=== PATIENT | female | born 1965 | race Caucasian/White ===

== ENCOUNTER 2016-12-27 22:41 | Observation (INO) | payer MEDICAID ==
--- NOTE | 2016-12-27 22:57 | ED Physician Documentation ---
PD HPI DYSPNEA - Stated complaint Stated Complaint: BACK PX - Chief complaint Chief Complaint: General - History obtained from History obtained from: Patient - History of Present Illness Timing - onset: Today Timing - details: Gradual onset, Still present Improved by: O2 Worsened by: Exertion Associated symptoms: No: Fever, Cough Similar symptoms before: Has not had sx before Recently seen: Not recently seen - Additional information Additional information: Patient is a 51 year old female who is presenting to the emergency department for back pain and swelling. patient states that she was at work today and was having trouble breathing due to a pain whenever she took a breath. Patient's co -worker stated that her back was swollen and had a large lump. Patient states that it came out of nowhere. Patient denies any trauma, of any sort, any falls or any muscle strains. Patient reports that she has had nothing like this in the past before. Review of Systems Constitutional: reports: Myalgias. denies: Fever, Chills Eyes: denies: Loss of vision Ears: denies: Ear pain, Drainage/discharge Nose: denies: Congestion, Epistaxis Throat: denies: Oral lesions / sores, Sore throat Cardiac: reports: Chest pain / pressure. denies: Palpitations Respiratory: reports: Dyspnea, Cough. denies: Wheezing GI: denies: Abdominal Pain, Nausea, Vomiting : denies: Dysuria, Frequency, Hesitancy Skin: reports: Lesions Musculoskeletal: reports: Back pain Neurologic: reports: Numbness. denies: Generalized weakness, Focal weakness Immunocompromised: denies: Immunocompromised PD PAST MEDICAL HISTORY - Past Medical History Past Medical History: Yes Cardiovascular: Hypertension Other Past Medical History: Blood clots in brain. - Past Surgical History Past Surgical History: Yes - Present Medications Home Medications: Ambulatory Orders Medication Instructions Recorded Confirmed Aspirin 81 mg PO DAILY 12/27/16 12/27/16 Ibuprofen 200 mg PO Q8HR PRN 12/27/16 12/27/16 - Allergies Allergies/Adverse Reactions: Allergies Allergy/AdvReac Type Severity Reaction Status Date / Time No Known Drug Allergies Allergy Verified 12/27/16 22:55 - Social History Does the pt smoke?: Yes Smoking Status: Current every day smoker Does the pt drink ETOH?: No Does the pt have substance abuse?: No - Immunizations Immunizations are current?: Yes - POLST Patient has POLST: No PD ED PE NORMAL - Vitals Vital signs reviewed: Yes - General General: Alert and oriented X 3 - HEENT HEENT: Atraumatic, PERRL - Cardiac Cardiac: RRR, No murmur - Respiratory Respiratory: No respiratory distress - Abdomen Abdomen: Soft, Non tender, Non distended - Derm Derm: Normal color, No rash - Neuro Neuro: Alert and oriented X 3, No motor deficit, No sensory deficit - Psych Psych: Normal mood, Normal affect PD ED PE EXPANDED - General General: Alert, In Pain - Back Back: Soft tissue tenderness (large mass approximately 12 inches by 5 inches. tender to touch, no erythema, no warmth) Results - Vitals Vitals: Vital Signs - 24 hr 12/27/16 12/27/16 22:45 23:45 Temperature 36.9 C Heart Rate 94 67 Respiratory 20 19 Rate Blood Pressure 180/104 H 149/83 H O2 Saturation 99 100 Oxygen O2 Source Room air - EKG (time done) 2306 Rate: Rate (enter#) (81) Rhythm: NSR Intervals: Prolonged QT QRS: Normal Ischemia: Normal ST segments Compare to prior EKG: Old EKG unavailable - Labs Labs: Laboratory Tests 12/27/16 12/27/16 12/27/16 22:55 22:55 22:55 WBC 15.3 H RBC 3.58 L Hgb 10.8 L Hct 31.9 L MCV 89.3 MCH 30.2 MCHC 33.9 RDW 14.3 Plt Count 162 MPV 9.5 Neut # 12.3 H Lymph # 2.0 Brule # 0.8 Eos # 0.1 Baso # 0.1 Absolute Nucleated RBC 0.00 Nucleated RBC % 0.0 PT INR APTT Sodium 135 Potassium 3.6 Chloride 102 Carbon Dioxide 24 Anion Gap 9.0 BUN 11 Creatinine 0.9 Estimated GFR (MDRD) 66 L Glucose 119 H Calcium 8.0 L Total Bilirubin 0.7 AST 17 ALT 11 Alkaline Phosphatase 49 Troponin I < 0.04 B-Natriuretic Peptide Total Protein 6.2 L Albumin 3.8 Globulin 2.4 Albumin/Globulin Ratio 1.6 Lipase 31 12/27/16 12/27/16 22:55 22:55 WBC RBC Hgb Hct MCV MCH MCHC RDW Plt Count MPV Neut # Lymph # Brule # Eos # Baso # Absolute Nucleated RBC Nucleated RBC % PT 12.1 INR 1.1 APTT 24.8 L Sodium Potassium Chloride Carbon Dioxide Anion Gap BUN Creatinine Estimated GFR (MDRD) Glucose Calcium Total Bilirubin AST ALT Alkaline Phosphatase Troponin I B-Natriuretic Peptide 88 Total Protein Albumin Globulin Albumin/Globulin Ratio Lipase - Rads (name of study) ct chest Radiology: Final report received (No Pe, large posterior hematoma) PD MEDICAL DECISION MAKING - ED course Complexity details: reviewed old records, reviewed results, re-evaluated patient , considered differential, d/w patient ED course: Patient was seen and examined at bedside. iv access was gained. ekg was performed and within normal limits. Patient was treated with iv fluids and morphine 4mg. Patient was sent for imaging. when patient returned the results were reviewed. there was no PE but there was a large hematoma. Surgery strategy planning consultant , dr. menjivar was contacted. she stated the patient should be placed in observation under the medical service, pain control and monitor the size and Hemoglobin levels. Dr. Anders was contacted and the case was discussed with him. Patient was placed in observation for further evaluation and care. Departure - Departure Disposition: ED Place in Observation Clinical Impression: Hematoma Condition: Stable
[2016-12-27 23:04] LABS: BASOPHILS # (AUTO) 0.1 10^3/uL (0.0-0.1); BASOPHILS % (AUTO) 0.8 %; EOSINOPHILS # (AUTO) 0.1 10^3/uL (0.0-0.7); EOSINOPHILS % (AUTO) 0.5 %; HCT - HEMATOCRIT 31.9 % (37.0-47.0); HGB - HEMOGLOBIN 10.8 g/dL (12.0-16.0); LYMPHOCYTES % (AUTO) 13.1 %; MEAN CORPUSCULAR HEMOGLOBIN 30.2 pg (27.0-31.0); MEAN CORPUSCULAR HGB CONC 33.9 g/dL (32.0-36.0); MEAN CORPUSCULAR VOLUME 89.3 fL (81.0-99.0); MEAN PLATELET VOLUME 9.5 fL (7.9-10.8); MONOCYTES # (AUTO) 0.8 10^3/uL (0.0-1.0); NEUTROPHILS # (AUTO) 12.3 10^3/uL (1.5-6.6); NEUTROPHILS % (AUTO) 80.6 %; RED BLOOD COUNT 3.58 10^6/uL (4.20-5.40); RED CELL DISTRIBUTION WIDTH 14.3 % (12.0-15.0); UNCORRECTED WHITE BLOOD COUNT 15.3 x10^3/uL; WHITE BLOOD COUNT 15.3 x10^3/uL (4.8-10.8)
[2016-12-27] MEDS ORDERED: MORPHINE 10 MG/ML VIAL IVP STA (23:05)
[2016-12-27] MEDS ORDERED: SODIUM CHLORIDE 0.9% 1,000 ML IV ONE (23:10)
[2016-12-27] MEDS ORDERED: ONDANSETRON 4 MG/2 ML VIAL IVP STA (23:11)
[2016-12-27] MEDS ORDERED: MORPHINE 2 MG/ML SYRINGE ONE (23:12)
[2016-12-27] MEDS ORDERED: SODIUM CHLORIDE FLUSH 0.9% 10 ML SYRINGE IVP ONE (23:12)
[2016-12-27] MEDS ORDERED: ONDANSETRON 4 MG/2 ML VIAL ONE (23:17)
[2016-12-27 23:18] LABS: ALBUMIN/GLOBULIN RATIO 1.6 (1.0-2.2); BILIRUBIN,TOTAL 0.7 mg/dL (0.2-1.0); CREATININE 0.9 mg/dL (0.4-1.0); POTASSIUM 3.6 mmol/L (3.5-5.0); TOTAL PROTEIN 6.2 g/dL (6.7-8.2)
[2016-12-27] MEDS ORDERED: IOPAMIDOL-300 100 ML VIAL ONE (23:25)
[2016-12-27 23:33] LABS: INR 1.1 (0.8-1.2); PT - PROTHROMBIN TIME 12.1 secs (9.9-12.6)
[2016-12-27] MEDS ORDERED: IOPAMIDOL-300 100 ML VIAL IVP ONE (23:39)
[2016-12-27 23:40] LABS: PARTIAL THROMBOPLASTIN TIME 24.8 secs (24.9-33.3)
--- NOTE | 2016-12-27 23:54 | CT Preliminary Report ---
Exam: CT CHEST ANGIO (PE) IMPRESSION: 1. No pulmonary emboli seen. 2. Very large left-sided body wall hematoma. 3. Flattening of the IVC which could represent hypovolemia. 4. Borderline heart size. [facility] SITE ID: [id number]
--- NOTE | 2016-12-27 23:57 | CT Report ---
EXAM: CT ANGIOGRAM CHEST EXAM DATE: 12/27/2016 11:47 PM. CLINICAL HISTORY: Chest pain, shortness of breath, hx of clots, large back mass. COMPARISON: None. TECHNIQUE: Routine helical imaging was performed through the chest in the pulmonary arterial phase. I V Contrast: Nonionic. Reconstructions: Coronal 3-D MIP reconstructions.Sagittal and coronal. In accordance with CT protocol optimization, one or more of the following dose reduction techniques w ere utilized for this exam: automated exposure control, adjustment of mA and/or KV based on patient s ize, or use of iterative reconstructive technique. FINDINGS: Pulmonary Arteries: Diagnostic quality: Adequate through the segmental arteries. No evidence for acute or chronic pulmona ry emboli. No evidence of right heart strain. Lungs/Pleura: No alveolar consolidation or pleural effusion. No pneumothorax. Mediastinum: Heart size upper normal. No lymphadenopathy seen. Thoracic Aorta: Ascending aorta measures 3.4 cm. No aortic dissection. Upper Abdomen: Possible fatty liver. Other: Very large left-sided body wall hematoma. Flattening of the inferior vena cava which could rep resent hypovolemia. IMPRESSION: 1. No pulmonary emboli seen. 2. Very large left-sided body wall hematoma. 3. Flattening of the IVC which could represent hypovolemia. 4. Borderline heart size. [facility] Referring Provider Line: [phone] SITE ID: [id number]
[2016-12-28] MEDS ORDERED: MORPHINE 10 MG/ML VIAL IVP STA (00:14)
[2016-12-28] MEDS ORDERED: ONDANSETRON 4 MG/2 ML VIAL IVP PRN (00:20)
[2016-12-28] MEDS ORDERED: oxyCODONE 5 MG TABLET PO PRN (00:20)
[2016-12-28] MEDS ORDERED: PROMETHAZINE 25 MG/1 ML VIAL IM PRN (00:20)
[2016-12-28] MEDS ORDERED: ZOLPIDEM 5 MG TABLET PO PRN (00:20)
[2016-12-28] MEDS ORDERED: PROCHLORPERAZINE 10 MG/2 ML VIAL IVP PRN (00:20)
--- NOTE | 2016-12-28 00:56 | HISTORY & PHYSICAL EXAMINATION ---
Chief Complaint - Chief Complaint Chief Complaint: Lump and swelling of the back History of Present Illness - Admitted From Admitted From:: Emergency Department - History Obtained From Records Reviewed: Yes History obtained from: Patient Exam Limitations: None - History of Present Illness HPI Comment/Other: Patient is a 51 year old female with past medical history of hypertension not currently on medications, Chronic anemia secondary to menorrhagia, fibroids status post hysterectomy and history of a neurological procedure in for likely aneurysm or cerebral hemorrhage who presents to the emergency department with a chief complaint of a lump and swelling of her back. The patient states that she moved here 3 months ago and does not have a primary care physician or health insurance and therefore was hesitant about coming to the ER today. She states she was in her normal state of health when she woke up this morning but she states at around 9am she felt a strange irritation in her back. She states the feeling with in her upper back on the left side behind her shoulder blade. She states that she felt the feeling go down in back to her lower back. She states that she then began having a feeling of pressure in her upper and mid back area. She states she went to work and while there she began experiencing worsening pain in her back. She states that a co-worker noticed that she had a large lump in her back and when she looked she noticed her upper back was swollen on the left side behind her shoulder blade. She states she went home and while at home she became nauseated and felt weak as though her legs were going to give out. She states she also felt dizzy. She then began having trouble taking a deep breath and felt as if the pain was now in her left chest wall. She also noticed that the pressure in her back was getting up into the left side of her neck. She finally decided to come to the emergency department. The patient is on an aspirin but no other blood thinners. She did take some ibuprofen prior to coming to the ER. The patient denies any recent trauma, headaches, blurred, vision, runny nose, sore throat, nasal congestion, difficulty swallowing, fevers, chills, palpitations, heart burn, orthopnea, PND, lower extremity swelling, diarrhea, urinary urgency, urinary frequency, dysuria, joint swelling, joint pain, muscle aches, changes in appetite, unintentional weight loss, night sweats or focal neurological deficits. On presentation to the emergency department the patient was afebrile, mildly tachycardic, hypertensive and tachypneic. She appeared to be in distress secondary to pain in her back and chest area as well as due to difficulty breathing. The patient underwent a cardiac work up with EKG and troponin. The patients EKG showed non specific changes but no evidence of ST elevations. The patients troponin was negative. On initial inspection by the ER physician the patient was noted to have a large area of swelling and induration over her left scapular region but into the neck and down to the mid back area. The patients lab work revealed a hemoglobin of 10.8 and a white blood cell count of 15.1. The patients platelet count was also borderline low at 162. The patients INR and PT were normal. The patients electrolytes were also normal. The patient underwent a CT angiogram of her chest which revealed a very large left sided body wall hematoma but no evidence of a PE. The Emergency room physician spoke with the Surgeon special education coordinator Dr Hair who advised the patient be placed in observation by the Hospitalist Physician and have serial hemoglobin monitoring. The surgeon said the patient would be seen in the morning to see if she needed any intervention. History - Past Medical History Cardiovascular: reports: Hypertension Neuro: reports: Other (Aneurysm or hematoma ) DATA CONTROL CLERK: reports: Fibroids, Other (Menorrhagia, uterine prolapse) MRSA Hx?: No - Past Surgical History /DATA CONTROL CLERK: reports: Hysterectomy - Family & Social History Family History: Mother: Diabetes, Type 2, Father: Diabetes, Type 2, [place], Sister: Cancer (Sister had leukemia ) Living arrangement: At home Living Situation: With family Social History Notes: The patient moved would [facility] 3 months ago to be closer to her son. The patient's son works in [place] he is in the [employer]. The patient is originally from [facility]. The patient has 4 children and is single. She smokes 3 cigarettes a day, she denies any alcohol or drug use. - Substance History Use: Uses substance without health or social issues: Tobacco Abuse: Recurrent use of substance despite neg consequences: NONE Dependence: Experiences withdrawal or developed tolerances: NONE - POLST Patient has POLST: No POLST Status: Full Code Meds/Allgy - Home Medications Home Medications: Ambulatory Orders Medication Instructions Recorded Confirmed Aspirin 81 mg PO DAILY 12/27/16 12/27/16 Ibuprofen 200 mg PO Q8HR PRN 12/27/16 12/27/16 - Allergies Allergies/Adverse Reactions: Allergies Allergy/AdvReac Type Severity Reaction Status Date / Time No Known Drug Allergies Allergy Verified 12/27/16 22:55 Review of Systems - Other Findings Other Findings: A comprehensive review of systems was performed the pertinent positives and negatives are stated above in the HPI and the remainder of the review of systems is negative. Exam - Vital Signs Reviewed Vital Signs: Yes Vital Signs: Vital Signs x48h Pulse Resp BP Pulse Ox 12/28/16 00:30 73 17 133/82 H 100 - Physical Exam General Appearance: positive: Alert, Mild distress (Unable to take deep breaths secondary to pain, patient is in a significant amount of pain.), Anxious Eyes Bilateral: positive: Normal inspection, PERRL, EOMI, No lid inflammation, Conjunctivae nml, No scleral icterus ENT: positive: ENT inspection nml, Pharynx nml, Dry mucous membranes. negative : Purulent nasal drainage, Pharyngeal erythema, Oral lesions Neck: positive: Nml inspection, Thyroid nml, No JVD, Trachea midline, Swelling/ bruising (Swelling of the left side of the neck.). negative: Thyromegaly, Lymphadenopathy (R), Lymphadenopathy (L), Stiff neck, Carotid bruit, Tracheal deviation Respiratory: positive: Breath sounds nml, Other (Patient unable to take deep breaths secondary to pain.). negative: Wheezes, Rales, Rhonchi Cardiovascular: positive: Regular rate & rhythm, No murmur, No gallop Peripheral Pulses: positive: 2+ Abdomen: positive: Non-tender, No organomegaly, Nml bowel sounds, No distention. negative: Guarding, Rebound, Hepatomegaly, Bruit Back: positive: Other (Patient has a large area of swelling and induration over the scapular area on the left up into the left side of her neck and to the mid back area. This area is tender, without erythema or warmth.). negative: CVA tenderness (R), CVA tenderness (L) Skin: positive: Color nml, No rash, Other (Swelling in the upper left side of the back and neck area as described above.). negative: Cyanosis, Diaphoresis, Pallor, Skin rash Extremities: positive: Non-tender, Full ROM, Nml appearance, No pedal edema. negative: Joint swelling Neurologic/Psychiatric: positive: Oriented x3, CN's nml (2-12), Motor nml, Sensation nml, Mood/affect nml Conclusion/Plan - Problem List (1) Hematoma Conclusion/Plan: The patient presented with what appears to be a spontaneous hematoma over the left scapular area on her back extending all the way down to the mid back and up into the left side of her neck. The area is indurated and quite tender but without erythema or signs of infection. CT of the patient's chest revealed a very large left-sided body wall hematoma. The patient does have a history of a possible cerebral hemorrhage although patient is a poor historian and we are currently trying to get records from her hospitalization in [place]. It is possible that the patient may have some sort of bleeding disorder as she did not have any kind of trauma to cause this hematoma. The patient likely has a bleeding vessel which is causing this accumulation of blood in her back. The patient is hemodynamically stable at this time. She does not appear to have any kind of compartment syndrome, respiratory compromise, airway compromise or focal neurologic deficits to warrant an emergent evacuation of the hematoma or embolization of blood vessel. Emergency room physician did talk with the surgeon special education coordinator who asked that we place the patient in observation for serial hemoglobins and that the patient would be seen in the morning. Plan: We will monitor closely for any progression of the hematoma, compartment syndrome, focal neurologic deficits or airway compromise. H&H every 6 hours Type and cross RBCs and transfuse if hemoglobin less than 7, hemodynamic compromise or rapid blood loss. Surgery consultation Hold aspirin and any other blood thinners. Pain control with Tylenol, oxycodone, morphine Warm heating pad to the area of hematoma (2) Anemia Conclusion/Plan: Patient appears to have acute blood loss anemia secondary to large hematoma in her left body wall posteriorly. The bleeding appears to be non-traumatic and is likely secondary to a bleeding vessel. The patient is not hypotensive, tachycardic or hemodynamically unstable. Patient does have a history of chronic anemia secondary to menorrhagia but is status post hysterectomy in 2014. Plan: We will monitor the patient's H&H every 6 hours Patient will be transfused if hemoglobin drops below 7 or if she has any hemodynamic compromise with continued bleeding Avoid any blood thinners Qualifiers: Other causes of anemia: acute posthemorrhagic (3) Leukocytosis Conclusion/Plan: Patient appears likely to have a reactive leukocytosis likely secondary to her hematoma. The patient does not appear to be infected as she is not having any fever or hypotension and the hematoma is not warm nor does it have surrounding erythema to suggest infection. We will continue to monitor the patient's CBC. Qualifiers: Leukocytosis type: leukemoid reaction Qualified Code(s): D72.823 - Leukemoid reaction (4) Hypertension Conclusion/Plan: The patient has history of hypertension and was previously on lisinopril at home however since moving to [facility] 3 months ago she does not have a physician and therefore is not taking any blood pressure medications. She states it has actually been 1 year since she last took lisinopril. Today the patient's blood pressure is elevated however it appears this is likely secondary to the pain from her hematoma. Plan: We will monitor the patient's blood pressure We will control the patient's pain We will start antihypertensive medication if the patient's blood pressure continues to be elevated Qualifiers: Hypertension type: essential hypertension Qualified Code(s): I10 - Essential (primary) hypertension (5) Tobacco abuse Conclusion/Plan: The patient smokes 3 cigarettes a day. She was counseled on the risks of continued smoking and advised to quit. The patient does not want a nicotine patch. (6) DVT prophylaxis Conclusion/Plan: We will avoid any blood thinners given the progressing hematoma. Patient will be placed on SCDs while she is hospitalized for DVT prophylaxis and encouraged to ambulate. - Lab Results Lab results reviewed: Yes Fish Bones: 12/28/16 01:03 12/27/16 22:55 Other Lab Results: Laboratory Results WBC 15.3 x10^3/uL (4.8-10.8) H 12/27/16 22:55 RBC 3.58 10^6/uL (4.20-5.40) L 12/27/16 22:55 Hgb 10.8 g/dL (12.0-16.0) L 12/27/16 22:55 Hct 31.9 % (37.0-47.0) L 12/27/16 22:55 MCV 89.3 fL (81.0-99.0) 12/27/16 22:55 MCH 30.2 pg (27.0-31.0) 12/27/16 22:55 MCHC 33.9 g/dL (32.0-36.0) 12/27/16 22:55 RDW 14.3 % (12.0-15.0) 12/27/16 22:55 Plt Count 162 10^3/uL (130-450) 12/27/16 22:55 MPV 9.5 fL (7.9-10.8) 12/27/16 22:55 Neut # 12.3 10^3/uL (1.5-6.6) H 12/27/16 22:55 Lymph # 2.0 10^3/uL (1.5-3.5) 12/27/16 22:55 [place] # 0.8 10^3/uL (0.0-1.0) 12/27/16 22:55 Eos # 0.1 10^3/uL (0.0-0.7) 12/27/16 22:55 Baso # 0.1 10^3/uL (0.0-0.1) 12/27/16 22:55 Absolute Nucleated RBC 0.00 x10^3/uL 12/27/16 22:55 Nucleated RBC % 0.0 /100WBC 12/27/16 22:55 PT 12.1 secs (9.9-12.6) 12/27/16 22:55 INR 1.1 (0.8-1.2) 12/27/16 22:55 APTT 24.8 secs (24.9-33.3) L 12/27/16 22:55 Sodium 135 mmol/L (135-145) 12/27/16 22:55 Potassium 3.6 mmol/L (3.5-5.0) 12/27/16 22:55 Chloride 102 mmol/L (101-111) 12/27/16 22:55 Carbon Dioxide 24 mmol/L (21-32) 12/27/16 22:55 Anion Gap 9.0 (6-13) 12/27/16 22:55 BUN 11 mg/dL (6-20) 12/27/16 22:55 Creatinine 0.9 mg/dL (0.4-1.0) 12/27/16 22:55 Estimated GFR (MDRD) 66 (>89) L 12/27/16 22:55 Glucose 119 mg/dL (70-100) H 12/27/16 22:55 Calcium 8.0 mg/dL (8.5-10.3) L 12/27/16 22:55 Total Bilirubin 0.7 mg/dL (0.2-1.0) 12/27/16 22:55 AST 17 IU/L (10-42) 12/27/16 22:55 ALT 11 IU/L (10-60) 12/27/16 22:55 Alkaline Phosphatase 49 IU/L (42-121) 12/27/16 22:55 Troponin I < 0.04 ng/mL (<0.49) 12/27/16 22:55 B-Natriuretic Peptide 88 pg/mL (5-100) 12/27/16 22:55 Total Protein 6.2 g/dL (6.7-8.2) L 12/27/16 22:55 Albumin 3.8 g/dL (3.2-5.5) 12/27/16 22:55 Globulin 2.4 g/dL (2.1-4.2) 12/27/16 22:55 Albumin/Globulin Ratio 1.6 (1.0-2.2) 12/27/16 22:55 Lipase 31 U/L (22-51) 12/27/16 22:55 - Diagnostic Imaging Results Diagnostic Imaging Results: positive: Final report reviewed Diagnostic Imaging Results Comments: CT angiogram chest Impression: 1. No pulmonary emboli seen. 2. Very large left-sided body wall hematoma. 3. Flattening of the IVC which could represent hypovolemia. 4. Borderline heart size. - EKG Results EKG Interpreted Independently: Yes EKG Findings: Nonspecific T-wave changes in the anterior leads. No ST elevations. QTc prolongation. Issues/Core Measures - Anticipated LOS Anticipated Stay Length: Less than 2 midnights - DVT/VTE - Prophylaxis VTE/DVT Device ordered at admit?: Yes
[2016-12-28 01:23] LABS: BASOPHILS # (AUTO) 0.1 10^3/uL (0.0-0.1); BASOPHILS % (AUTO) 0.8 %; EOSINOPHILS # (AUTO) 0.1 10^3/uL (0.0-0.7); EOSINOPHILS % (AUTO) 0.4 %; HGB - HEMOGLOBIN 9.2 g/dL (12.0-16.0); LYMPHOCYTES # (AUTO) 1.9 10^3/uL (1.5-3.5); LYMPHOCYTES % (AUTO) 12.8 %; MEAN CORPUSCULAR HEMOGLOBIN 30.1 pg (27.0-31.0); MEAN CORPUSCULAR HGB CONC 32.8 g/dL (32.0-36.0); MEAN CORPUSCULAR VOLUME 91.7 fL (81.0-99.0); MONOCYTES # (AUTO) 0.7 10^3/uL (0.0-1.0); MONOCYTES % (AUTO) 4.9 %; NEUTROPHILS # (AUTO) 12.2 10^3/uL (1.5-6.6); NEUTROPHILS % (AUTO) 81.1 %; RED BLOOD COUNT 3.06 10^6/uL (4.20-5.40); RED CELL DISTRIBUTION WIDTH 14.7 % (12.0-15.0); UNCORRECTED WHITE BLOOD COUNT 15.1 x10^3/uL; WHITE BLOOD COUNT 15.1 x10^3/uL (4.8-10.8)
[2016-12-28] MEDS: SODIUM CHLORIDE 0.9% 1,000 ML IV SCH ×4 (01:37→22:48)
[2016-12-28] MEDS: oxyCODONE 5 MG TABLET PO PRN ×4 (02:38→18:16)
[2016-12-28] MEDS: SODIUM CHLORIDE FLUSH 0.9% 10 ML SYRINGE IVP PRN (02:39)
[2016-12-28] MEDS: ACETAMINOPHEN 325 MG TABLET PO PRN (05:56)
[2016-12-28 06:12] LABS: INR 1.1 (0.8-1.2); PT - PROTHROMBIN TIME 12.8 secs (9.9-12.6)
[2016-12-28 06:13] LABS: ALBUMIN/GLOBULIN RATIO 1.3 (1.0-2.2); BUN - BLOOD UREA NITROGEN 11 mg/dL (6-20); CARBON DIOXIDE - CO2 26 mmol/L (21-32); CHLORIDE 105 mmol/L (101-111); CREATININE 0.9 mg/dL (0.4-1.0); GFR - MDRD 66 (>89); GLUCOSE 105 mg/dL (70-100); POTASSIUM 3.1 mmol/L (3.5-5.0); SODIUM 136 mmol/L (135-145)
[2016-12-28 06:19] LABS: PARTIAL THROMBOPLASTIN TIME 27.3 secs (24.9-33.3)
[2016-12-28 06:24] LABS: BASOPHILS # (AUTO) 0.1 10^3/uL (0.0-0.1); BASOPHILS % (AUTO) 0.8 %; EOSINOPHILS # (AUTO) 0.1 10^3/uL (0.0-0.7); EOSINOPHILS % (AUTO) 0.6 %; HCT - HEMATOCRIT 24.9 % (37.0-47.0); HGB - HEMOGLOBIN 8.3 g/dL (12.0-16.0); LYMPHOCYTES # (AUTO) 1.5 10^3/uL (1.5-3.5); LYMPHOCYTES % (AUTO) 15.3 %; MEAN CORPUSCULAR HEMOGLOBIN 30.9 pg (27.0-31.0); MEAN CORPUSCULAR HGB CONC 33.6 g/dL (32.0-36.0); MEAN PLATELET VOLUME 10.4 fL (7.9-10.8); MONOCYTES # (AUTO) 0.7 10^3/uL (0.0-1.0); NEUTROPHILS # (AUTO) 7.6 10^3/uL (1.5-6.6); NEUTROPHILS % (AUTO) 76.3 %; NUCLEATED RED BLOOD CELLS AUTO 0.1 /100WBC; RED CELL DISTRIBUTION WIDTH 14.9 % (12.0-15.0)
[2016-12-28] MEDS: SODIUM CHLORIDE FLUSH 0.9% 10 ML SYRINGE IVP SCH ×3 (06:50→20:31)
[2016-12-28] MEDS: POLYETHYLENE GLYCOL 3350 17 GM PACKET PO SCH (08:09)
[2016-12-28] MEDS: FAMOTIDINE 20 MG TABLET PO SCH (10:12)
--- NOTE | 2016-12-28 10:43 | CONSULTATION NOTE ---
DATE OF CONSULTATION: 12/28/2016 00:00:00 REASON FOR CONSULTATION: Left flank hematoma. HISTORY OF PRESENT ILLNESS: This is a 51-year-old female who presented to the emergency department last night for complaints of worsening upper back pain since 9 a.m. that morning. One of her coworkers also told her that she noticed a swelling along her left back. Upon evaluation in the emergency department, she was additionally complaining of some shortness of breath and dyspnea. She was noted to be hemodynamically stable. A CTA of the chest was performed to rule out aortic dissection or PE and none was noted; however, a large soft tissue hematoma was noted located in the paraspinal region of the left upper thorax region. The patient denies any prior history of trauma. She does not take any blood thinners. She does not have any known history of bleeding diathesis. Her hemoglobin and hematocrit were noted to be 10.8 and 31.9 upon evaluation. Her platelet count was 162 and her INR 1.1. Her LFTs were noted to be normal. The patient takes a baby aspirin daily, but no other anticoagulant. She does state that she has large dogs that she walks, and they often pull with a lot of force, but otherwise denies any other possible trauma to the region. Upon my evaluation of the patient, she has remained hemodynamically stable overnight. She is slightly dizzy and continues to have the upper back pain. Her white blood cell count on admission was 15.3. This has decreased to 10.0. Her hemoglobin is now 8.3 and platelets are slightly low at 107. PAST MEDICAL HISTORY: Significant for high blood pressure; however, she is not taking any medication for this, as she does not have insurance and does not have a primary care provider. HOME MEDICATIONS: Aspirin 81 mg daily. ALLERGIES TO MEDICATIONS: NO KNOWN DRUG ALLERGIES. SOCIAL HISTORY: The patient works as a snack bar cashier. She denies significant alcohol abuse. PHYSICAL EXAMINATION VITAL SIGNS: Temperature is 36.6, blood pressure 104/54, heart rate is 56, respiratory rate 19. O2 saturation is 99% on room air. GENERAL: She is awake, alert, oriented x3, in no acute distress. She is of average build. CARDIOVASCULAR: Regular rate and rhythm. CHEST: Clear to auscultation bilaterally with no rhonchi or wheezing. There is an approximately 10 x 8 cm swelling of her posterior thorax in the paraspinal left region. This is somewhat tender to palpation. There are no overlying skin changes or cellulitis. There is a small amount of ecchymosis laterally along the left chest wall. She has full mobility of her upper extremities bilaterally. ABDOMEN: Soft and nondistended. EXTREMITIES: Well perfused. LABORATORY VALUES: White blood cell count 10.0, hemoglobin 8.3, hematocrit 24.9 , platelets 107. PT 12.8, INR 1.1, PTT 27.3. Sodium 136, potassium 3.1, chloride 105, bicarbonate 26, BUN 11, creatinine 0.9, total bilirubin 1.0, AST 11, ALT less than 10. ASSESSMENT: This is a 51-year-old female with a posterior thorax left paraspinal hematoma of unknown etiology. PLAN: The patient has remained hemodynamically stable during observation and upon review of the CTA with our radiologist, Dr. Francisco, no evidence of extravasation of blood products is seen, and no bony trauma is visualized. I do not recommend any surgical intervention at this time. I do recommend that the patient follow up with me in the office in 1 week for reevaluation to ensure resolution of the hematoma. Additionally, she should be connected with a primary care physician and eventually a director of training for concern for spontaneous bleeding. I did estate planning counselor the patient that if she develops any increasing dizziness or enlargement of the swelling or fevers or chills, she should seek immediate medical attention. I also counseled her to keep ice on the area continuously for the next 48 hours and to avoid any strenuous activity including walking her dogs or heavy lifting until the pain is improved and hematoma swelling has decreased. 10:9:00 JOB #: [id number] EXT JOB #:[id number] MTDD
--- NOTE | 2016-12-28 11:12 | CT Report ---
CT BRAIN WITHOUT CONTRAST: 12/28/2016 CLINICAL INDICATION: Headache, nausea, history of subdural. TECHNIQUE: Axial CT images of the brain were obtained without contrast. No previous CT is available for comparison. In accordance with CT protocol optimization, one or more of the following dose reduction techniques were utilized for this exam: automated exposure control, adjustment of mA and/or KV based on patient size, or use of iterative reconstructive technique. FINDINGS: The ventricles and sulci are normal in size, shape, and configuration. The basilar cisterns are patent. There is no evidence of acute hemorrhage, mass effect, or midline shift. The visualized orbital contents and paranasal sinuses appear unremarkable. Postoperative changes are noted in the right calvarium from previous ramon holes. IMPRESSION: NO EVIDENCE OF ACUTE HEMORRHAGE OR MASS EFFECT. POSTOPERATIVE CHANGES IN THE RIGHT CALVARIUM. JOB #: [id number] EXT JOB #: [id number] [facility]
[2016-12-28 12:54] LABS: BASOPHILS # (AUTO) 0.1 10^3/uL (0.0-0.1); BASOPHILS % (AUTO) 0.6 %; EOSINOPHILS # (AUTO) 0.1 10^3/uL (0.0-0.7); EOSINOPHILS % (AUTO) 0.8 %; HCT - HEMATOCRIT 23.4 % (37.0-47.0); HGB - HEMOGLOBIN 7.9 g/dL (12.0-16.0); LYMPHOCYTES # (AUTO) 1.5 10^3/uL (1.5-3.5); LYMPHOCYTES % (AUTO) 15.5 %; MEAN CORPUSCULAR HEMOGLOBIN 30.4 pg (27.0-31.0); MEAN CORPUSCULAR HGB CONC 33.6 g/dL (32.0-36.0); MEAN CORPUSCULAR VOLUME 90.6 fL (81.0-99.0); MEAN PLATELET VOLUME 9.6 fL (7.9-10.8); MONOCYTES # (AUTO) 0.7 10^3/uL (0.0-1.0); MONOCYTES % (AUTO) 7.1 %; NEUTROPHILS # (AUTO) 7.4 10^3/uL (1.5-6.6); RED BLOOD COUNT 2.59 10^6/uL (4.20-5.40); UNCORRECTED WHITE BLOOD COUNT 9.8 x10^3/uL; WHITE BLOOD COUNT 9.8 x10^3/uL (4.8-10.8)
--- NOTE | 2016-12-28 13:16 | PROVIDER PROGRESS NOTE ---
Subjective - Prog Note Date Prog Note Date: 12/28/16 Prog Note Time: 13:14 - Subjective Pt reports feeling: No change Subjective: She is sleepy. Tired. Because she had a severe headache with nausea and a history of a subdural, I repeated the CT of her head this morning and it is negative. Between yesterday and today her hemoglobin is dropped from 10.8>8. Pulse stayed stable. Blood pressure slightly lower. I was able to review her records from [facility] in [facility]. She had a hysterectomy there in June 2015 for chronic anemia with worsening. Hemoglobin was 6.2. I then called Dr. Britton, the neurosurgeon that she names for her bur holes. His office states that she was at [facility] in [facility] for that procedure. Current Medications - Current Medications Current Medications: Active Medications Acetaminophen (Tylenol) 650 mg PO Q4HR PRN PRN Reason: Pain 1 to 4 Last Admin: 12/28/16 05:56 Dose: 650 mg Famotidine (Pepcid) 20 mg PO DAILY [facility] Last Admin: 12/28/16 10:12 Dose: 20 mg Sodium Chloride (Normal Saline 0.9%) 1,000 mls @ 100 mls/hr IV .Q10H DOE Last Admin: 12/28/16 12:10 Dose: 100 mls/hr Morphine Sulfate (Morphine) 2 mg IVP Q2H PRN PRN Reason: Pain 8 to 10 Ondansetron HCl (Zofran Inj) 4 mg IVP Q6HR PRN PRN Reason: Nausea / Vomiting Oxycodone HCl (Roxicodone) 5 mg PO Q4HR PRN PRN Reason: Pain 5 to 7 Oxycodone HCl (Roxicodone) 10 mg PO Q4HR PRN PRN Reason: Pain 8 to 10 Last Admin: 12/28/16 10:12 Dose: 10 mg Polyethylene Glycol (Miralax) 17 gm PO DAILY [facility] Last Admin: 12/28/16 08:09 Dose: Not Given Potassium Chloride (K-Dur) 20 meq PO DAILYWM [facility] Prochlorperazine Edisylate (Compazine Inj) 10 mg IVP Q6HR PRN PRN Reason: Nausea / Vomiting Last Admin: 12/28/16 08:07 Dose: 10 mg Promethazine HCl (Phenergan Inj) 25 mg IM Q6HR PRN PRN Reason: Nausea / Vomiting Sodium Chloride (Normal Saline Flush 0.9%) 10 ml IVP PRN PRN PRN Reason: NEEDED PER PROVIDER ORDERS Last Admin: 12/28/16 02:39 Dose: 10 ml Sodium Chloride (Normal Saline Flush 0.9%) 10 ml IVP Q8HR DOE Last Admin: 12/28/16 06:50 Dose: Not Given Zolpidem Tartrate (Ambien) 5 mg PO QPM PRN PRN Reason: Insomnia Aspirin 81 mg PO DAILY 12/27/16 Aspirin/Acetaminophen/Caffeine [Cvs Headache Relief Caplet] 1 each PO Q6H PRN Objective - Vital Signs/Intake & Output Reviewed Vital Signs: Yes Vital Signs: Vital Signs x48h Temp Pulse Resp BP Pulse Ox 12/28/16 11:32 36.5 C 56 L 16 110/61 98 12/28/16 07:50 36.6 C 56 L 19 104/54 L 12/28/16 05:30 36.5 C 64 16 126/64 99 Intake & Output: Intake & Output 12/25/16 12/26/16 12/27/16 12/28/16 23:59 23:59 23:59 23:59 Intake Total 2653.333 Balance 2653.333 - Objective General Appearance: positive: Mild distress (from [place] and the pain of the back hematoma), Other (sleepy and slightly slow) Eyes Bilateral: positive: PERRL, No scleral icterus ENT: positive: Pharynx nml Neck: positive: No JVD. negative: Stiff neck, Carotid bruit Respiratory: positive: Chest non-tender. negative: Wheezes, Rales, Rhonchi Cardiovascular: positive: Regular rate & rhythm. negative: Systolic murmur, Gallop/S4, Friction rub Abdomen: positive: Non-tender, No organomegaly, Nml bowel sounds, No distention Skin: positive: Warm, Dry Extremities: positive: Full ROM, No pedal edema Neurologic/Psychiatric: positive: Oriented x3, CN's nml (2-12), Motor nml - Lab Results Fish Bones: 12/28/16 12:40 12/28/16 05:42 Other Labs: Lab Results x24hrs 12/28/16 12/28/16 12/28/16 Range/Units 12:40 05:42 05:42 WBC 9.8 10.0 (4.8-10.8) x10^3/uL RBC 2.59 L 2.70 L (4.20-5.40) 10^6/uL Hgb 7.9 L 8.3 L (12.0-16.0) g/dL Hct 23.4 L 24.9 L (37.0-47.0) % MCV 90.6 92.0 (81.0-99.0) fL MCH 30.4 30.9 (27.0-31.0) pg MCHC 33.6 33.6 (32.0-36.0) g/dL RDW 15.0 14.9 (12.0-15.0) % Plt Count 106 L 107 L (130-450) 10^3/uL MPV 9.6 10.4 (7.9-10.8) fL Neut # 7.4 H 7.6 H (1.5-6.6) 10^3/uL Lymph # 1.5 1.5 (1.5-3.5) 10^3/uL [place] # 0.7 0.7 (0.0-1.0) 10^3/uL Eos # 0.1 0.1 (0.0-0.7) 10^3/uL Baso # 0.1 0.1 (0.0-0.1) 10^3/uL Absolute Nucleated RBC 0.00 0.01 x10^3/uL Nucleated RBC % 0.0 0.1 /100WBC PT (9.9-12.6) secs INR (0.8-1.2) APTT (24.9-33.3) secs Fibrinogen (220-496) mg/dL Sodium 136 (135-145) mmol/L Potassium 3.1 L (3.5-5.0) mmol/L Chloride 105 (101-111) mmol/L Carbon Dioxide 26 (21-32) mmol/L Anion Gap 5.0 L (6-13) BUN 11 (6-20) mg/dL Creatinine 0.9 (0.4-1.0) mg/dL Estimated GFR (MDRD) 66 L (>89) Glucose 105 H (70-100) mg/dL Calcium 7.0 L (8.5-10.3) mg/dL Total Bilirubin 1.0 (0.2-1.0) mg/dL AST 11 (10-42) IU/L ALT < 10 L (10-60) IU/L Alkaline Phosphatase 40 L (42-121) IU/L Total Protein 5.0 L (6.7-8.2) g/dL Albumin 2.8 L (3.2-5.5) g/dL Globulin 2.2 (2.1-4.2) g/dL Albumin/Globulin Ratio 1.3 (1.0-2.2) Blood Type Antibody Screen 12/28/16 12/28/16 12/28/16 Range/Units 05:42 01:03 01:03 WBC 15.1 H (4.8-10.8) x10^3/uL RBC 3.06 L (4.20-5.40) 10^6/uL Hgb 9.2 L (12.0-16.0) g/dL Hct 28.0 L (37.0-47.0) % MCV 91.7 (81.0-99.0) fL MCH 30.1 (27.0-31.0) pg MCHC 32.8 (32.0-36.0) g/dL RDW 14.7 (12.0-15.0) % Plt Count 122 L (130-450) 10^3/uL MPV 10.0 (7.9-10.8) fL Neut # 12.2 H (1.5-6.6) 10^3/uL Lymph # 1.9 (1.5-3.5) 10^3/uL [place] # 0.7 (0.0-1.0) 10^3/uL Eos # 0.1 (0.0-0.7) 10^3/uL Baso # 0.1 (0.0-0.1) 10^3/uL Absolute Nucleated RBC 0.00 x10^3/uL Nucleated RBC % 0.0 /100WBC PT 12.8 H (9.9-12.6) secs INR 1.1 (0.8-1.2) APTT 27.3 (24.9-33.3) secs Fibrinogen 295 (220-496) mg/dL Sodium (135-145) mmol/L Potassium (3.5-5.0) mmol/L Chloride (101-111) mmol/L Carbon Dioxide (21-32) mmol/L Anion Gap (6-13) BUN (6-20) mg/dL Creatinine (0.4-1.0) mg/dL Estimated GFR (MDRD) (>89) Glucose (70-100) mg/dL Calcium (8.5-10.3) mg/dL Total Bilirubin (0.2-1.0) mg/dL AST (10-42) IU/L ALT (10-60) IU/L Alkaline Phosphatase (42-121) IU/L Total Protein (6.7-8.2) g/dL Albumin (3.2-5.5) g/dL Globulin (2.1-4.2) g/dL Albumin/Globulin Ratio (1.0-2.2) Blood Type O POSITIVE Antibody Screen NEGATIVE Assessment/Plan - Problem List (1) Hematoma Impression: This winnie female gives us a history of menometrorrhagia, a spontaneous subdural, a spontaneous thigh hematoma last month, and now this. No one in her family has a bleeding disorder. Her hemoglobin has dropped a bit but it may be from dilution from 2 L of fluid. I spoke at length to [facility] hematology attending who is on- call today: Tyrone Meza MD. They actually feel that she would be an acceptable candidate to transfer but they have no beds at this time. They would like me to consider von Willebrand's disease, or acquired hemophilia. They recommend her being transfuse if hemoglobin drops less than 7 or less than 8 if she is symptomatic with shortness of breath and chest pain. They feel that as long as her platelets stay above 100,000 I do not need to transfuse unless she drops below 50. INR is 1.1 and I do not need to give vitamin K or FFP unless INR goes above 1.5. They would like her CBC and PT/INR checked twice a day. If she starts to actively bleed with a drop in blood pressure or increase in pulse call them back. I will continue to try and track down those records with regards to her subdural hematoma. (2) Headache Impression: With a history of a subdural hematoma (that I gleaned from her statements) I repeated a CT of the head and there is no acute bleed. We will treat symptomatically. Qualifiers: Headache type: unspecified (3) Anemia Impression: she has a hx of iron def anemia per the hysterectomy records. can't say she has acute blood loss vs. chronic blood loss right now. Will conitnue to follow. will also abide by Hematology recommendations. Qualifiers: Other causes of anemia: acute posthemorrhagic (4) Hypokalemia Impression: supplement po.
[2016-12-28] MEDS: POTASSIUM CHLORIDE 20 MEQ TABLET PO SCH (13:40)
[2016-12-28 19:19] LABS: BASOPHILS # (AUTO) 0.1 10^3/uL (0.0-0.1); EOSINOPHILS # (AUTO) 0.1 10^3/uL (0.0-0.7); EOSINOPHILS % (AUTO) 0.7 %; HCT - HEMATOCRIT 24.2 % (37.0-47.0); LYMPHOCYTES # (AUTO) 1.2 10^3/uL (1.5-3.5); LYMPHOCYTES % (AUTO) 12.1 %; MEAN CORPUSCULAR HEMOGLOBIN 30.6 pg (27.0-31.0); MEAN CORPUSCULAR HGB CONC 33.1 g/dL (32.0-36.0); MEAN CORPUSCULAR VOLUME 92.3 fL (81.0-99.0); MEAN PLATELET VOLUME 9.6 fL (7.9-10.8); MONOCYTES # (AUTO) 0.6 10^3/uL (0.0-1.0); NEUTROPHILS # (AUTO) 7.9 10^3/uL (1.5-6.6); NEUTROPHILS % (AUTO) 80.2 %; NUCLEATED RED BLOOD CELLS AUTO 0.1 /100WBC; RED BLOOD COUNT 2.63 10^6/uL (4.20-5.40); RED CELL DISTRIBUTION WIDTH 15.1 % (12.0-15.0); UNCORRECTED WHITE BLOOD COUNT 9.8 x10^3/uL; WHITE BLOOD COUNT 9.8 x10^3/uL (4.8-10.8)
[2016-12-28 19:20] LABS: INR 1.1 (0.8-1.2); PT - PROTHROMBIN TIME 12.4 secs (9.9-12.6)
[2016-12-28 19:29] LABS: PARTIAL THROMBOPLASTIN TIME 27.6 secs (24.9-33.3)
[2016-12-29] MEDS: oxyCODONE 5 MG TABLET PO PRN ×3 (00:08→13:13)
[2016-12-29] MEDS ORDERED: ALPRAZolam 0.25 MG TABLET PO PRN (00:29)
[2016-12-29] MEDS: NICOTINE 21 MG PATCH TOP SCH ×2 (00:47→10:55)
[2016-12-29 06:00] LABS: BASOPHILS # (AUTO) 0.1 10^3/uL (0.0-0.1); BASOPHILS % (AUTO) 0.6 %; EOSINOPHILS % (AUTO) 0.3 %; HCT - HEMATOCRIT 20.6 % (37.0-47.0); LYMPHOCYTES # (AUTO) 1.4 10^3/uL (1.5-3.5); LYMPHOCYTES % (AUTO) 12.9 %; MEAN CORPUSCULAR HEMOGLOBIN 30.7 pg (27.0-31.0); MEAN CORPUSCULAR HGB CONC 33.1 g/dL (32.0-36.0); MEAN CORPUSCULAR VOLUME 92.7 fL (81.0-99.0); MEAN PLATELET VOLUME 10.3 fL (7.9-10.8); MONOCYTES # (AUTO) 0.8 10^3/uL (0.0-1.0); MONOCYTES % (AUTO) 7.1 %; NEUTROPHILS # (AUTO) 8.4 10^3/uL (1.5-6.6); NEUTROPHILS % (AUTO) 79.1 %; RED BLOOD COUNT 2.22 10^6/uL (4.20-5.40); RED CELL DISTRIBUTION WIDTH 15.3 % (12.0-15.0); UNCORRECTED WHITE BLOOD COUNT 10.6 x10^3/uL; WHITE BLOOD COUNT 10.6 x10^3/uL (4.8-10.8)
[2016-12-29 06:02] LABS: HGB - HEMOGLOBIN 6.8 g/dL (12.0-16.0)
[2016-12-29 06:06] LABS: ALBUMIN/GLOBULIN RATIO 1.2 (1.0-2.2); BILIRUBIN,TOTAL 0.4 mg/dL (0.2-1.0); BUN - BLOOD UREA NITROGEN 9 mg/dL (6-20); CALCIUM 7.3 mg/dL (8.5-10.3); CARBON DIOXIDE - CO2 23 mmol/L (21-32); CHLORIDE 108 mmol/L (101-111); CREATININE 0.7 mg/dL (0.4-1.0); GFR - MDRD 89 (>89); GLUCOSE 106 mg/dL (70-100); POTASSIUM 3.7 mmol/L (3.5-5.0); SODIUM 136 mmol/L (135-145); TOTAL PROTEIN 4.9 g/dL (6.7-8.2)
[2016-12-29] MEDS: MORPHINE 2 MG/ML SYRINGE IVP PRN ×4 (07:42→16:16)
[2016-12-29] MEDS: SODIUM CHLORIDE FLUSH 0.9% 10 ML SYRINGE IVP SCH ×3 (07:51→16:16)
[2016-12-29] MEDS ORDERED: PHYTONADIONE 10 MG/ML AMP PO SCH ×2 (08:26→09:00)
[2016-12-29] MEDS: SODIUM CHLORIDE FLUSH 0.9% 10 ML SYRINGE IVP PRN ×2 (08:31→16:16)
[2016-12-29] MEDS: POTASSIUM CHLORIDE 20 MEQ TABLET PO SCH (08:54)
[2016-12-29] MEDS: FAMOTIDINE 20 MG TABLET PO SCH (10:55)
[2016-12-29] MEDS: POLYETHYLENE GLYCOL 3350 17 GM PACKET PO SCH (10:55)
[2016-12-29] MEDS: ACETAMINOPHEN 325 MG TABLET PO PRN (13:13)
--- NOTE | 2016-12-29 13:32 | PROVIDER PROGRESS NOTE ---
Subjective - Prog Note Date Prog Note Date: 12/29/16 Prog Note Time: 13:27 - Subjective Pt reports feeling: No change Subjective: She continues to have a low-grade headache. Just feels so sleepy. She is short of breath with talking to her family. She feels pressure from the hematoma and it presses on her back and presses in her left breast and it feels like it cuts off her air. But she is not hypoxic and blood pressures remained stable. Current Medications - Current Medications Current Medications: Active Medications Acetaminophen (Tylenol) 650 mg PO Q4HR PRN PRN Reason: Pain 1 to 4 Last Admin: 12/29/16 13:13 Dose: 650 mg Alprazolam (Xanax) 0.25 mg PO Q6HR PRN PRN Reason: Anxiety Last Admin: 12/29/16 00:46 Dose: 0.25 mg Famotidine (Pepcid) 20 mg PO DAILY [facility] Last Admin: 12/29/16 10:55 Dose: 20 mg Sodium Chloride (Normal Saline 0.9%) 1,000 mls @ 100 mls/hr IV .Q10H DOE Last Admin: 12/28/16 22:48 Dose: 100 mls/hr Morphine Sulfate (Morphine) 2 mg IVP Q2H PRN PRN Reason: Pain 8 to 10 Last Admin: 12/29/16 07:48 Dose: 2 mg Morphine Sulfate (Morphine) 4 mg IVP Q2H PRN PRN Reason: PAIN Last Admin: 12/29/16 16:16 Dose: 4 mg Nicotine (Nicoderm) 1 patch TOP DAILY [facility] Last Admin: 12/29/16 10:55 Dose: 1 patch Ondansetron HCl (Zofran Inj) 4 mg IVP Q6HR PRN PRN Reason: Nausea / Vomiting Oxycodone HCl (Roxicodone) 5 mg PO Q4HR PRN PRN Reason: Pain 5 to 7 Oxycodone HCl (Roxicodone) 10 mg PO Q4HR PRN PRN Reason: Pain 8 to 10 Last Admin: 12/29/16 13:13 Dose: 10 mg Polyethylene Glycol (Miralax) 17 gm PO DAILY [facility] Last Admin: 12/29/16 10:55 Dose: Not Given Potassium Chloride (K-Dur) 20 meq PO [facility] Last Admin: 12/29/16 08:54 Dose: 20 meq Prochlorperazine Edisylate (Compazine Inj) 10 mg IVP Q6HR PRN PRN Reason: Nausea / Vomiting Last Admin: 12/28/16 08:07 Dose: 10 mg Promethazine HCl (Phenergan Inj) 25 mg IM Q6HR PRN PRN Reason: Nausea / Vomiting Sodium Chloride (Normal Saline Flush 0.9%) 10 ml IVP PRN PRN PRN Reason: NEEDED PER PROVIDER ORDERS Last Admin: 12/29/16 16:16 Dose: 10 ml Sodium Chloride (Normal Saline Flush 0.9%) 10 ml IVP Q8HR DOE Last Admin: 12/29/16 16:16 Dose: 10 ml Zolpidem Tartrate (Ambien) 5 mg PO QPM PRN PRN Reason: Insomnia Aspirin 81 mg PO DAILY 12/27/16 Aspirin/Acetaminophen/Caffeine [Cvs Headache Relief Caplet] 1 each PO Q6H PRN Objective - Vital Signs/Intake & Output Reviewed Vital Signs: Yes Vital Signs: Vital Signs x48h Temp Pulse Resp BP Pulse Ox 12/29/16 11:24 36.6 C 86 18 131/87 H 100 12/29/16 08:45 37.0 C 102 H 20 148/76 H Intake & Output: Intake & Output 12/26/16 12/27/16 12/28/16 12/29/16 23:59 23:59 23:59 23:59 Intake Total 3793.333 300 Balance 3793.333 300 - Objective General Appearance: positive: No acute distress, Mild distress, Lethargic Eyes Bilateral: positive: PERRL, EOMI, No scleral icterus ENT: positive: Pharynx nml Neck: positive: No JVD. negative: Lymphadenopathy (R), Lymphadenopathy (L), Stiff neck Respiratory: positive: Chest non-tender, Other (Chest wall has the large hematoma covering her scapula and going into the axilla toward her breast). negative: Wheezes, Rales, Rhonchi Cardiovascular: positive: Regular rate & rhythm. negative: Gallop/S4, Friction rub Abdomen: positive: Non-tender, No organomegaly, Nml bowel sounds, No distention Skin: positive: Warm, Dry Extremities: positive: No pedal edema Neurologic/Psychiatric: positive: Oriented x3, CN's nml (2-12), Motor nml - Lab Results Fish Bones: 12/29/16 05:29 12/29/16 05:29 Other Labs: Lab Results x24hrs 12/29/16 12/29/16 12/28/16 Range/Units 05:29 05:29 19:05 WBC 10.6 (4.8-10.8) x10^3/uL RBC 2.22 L (4.20-5.40) 10^6/uL Hgb 6.8 L* (12.0-16.0) g/dL Hct 20.6 L (37.0-47.0) % MCV 92.7 (81.0-99.0) fL MCH 30.7 (27.0-31.0) pg MCHC 33.1 (32.0-36.0) g/dL RDW 15.3 H (12.0-15.0) % Plt Count 99 L (130-450) 10^3/uL MPV 10.3 (7.9-10.8) fL Neut # 8.4 H (1.5-6.6) 10^3/uL Lymph # 1.4 L (1.5-3.5) 10^3/uL [place] # 0.8 (0.0-1.0) 10^3/uL Eos # 0.0 (0.0-0.7) 10^3/uL Baso # 0.1 (0.0-0.1) 10^3/uL Absolute Nucleated RBC 0.00 x10^3/uL Nucleated RBC % 0.0 /100WBC PT 12.4 (9.9-12.6) secs INR 1.1 (0.8-1.2) APTT 27.6 (24.9-33.3) secs Sodium 136 (135-145) mmol/L Potassium 3.7 (3.5-5.0) mmol/L Chloride 108 (101-111) mmol/L Carbon Dioxide 23 (21-32) mmol/L Anion Gap 5.0 L (6-13) BUN 9 (6-20) mg/dL Creatinine 0.7 (0.4-1.0) mg/dL Estimated GFR (MDRD) 89 (>89) Glucose 106 H (70-100) mg/dL Calcium 7.3 L (8.5-10.3) mg/dL Total Bilirubin 0.4 (0.2-1.0) mg/dL AST 10 (10-42) IU/L ALT < 10 L (10-60) IU/L Alkaline Phosphatase 32 L (42-121) IU/L Total Protein 4.9 L (6.7-8.2) g/dL Albumin 2.7 L (3.2-5.5) g/dL Globulin 2.2 (2.1-4.2) g/dL Albumin/Globulin Ratio 1.2 (1.0-2.2) Blood Type Blood Type Recheck Antibody Screen Crossmatch IS Only 12/28/16 12/28/16 Range/Units 19:05 01:03 WBC 9.8 (4.8-10.8) x10^3/uL RBC 2.63 L (4.20-5.40) 10^6/uL Hgb 8.0 L (12.0-16.0) g/dL Hct 24.2 L (37.0-47.0) % MCV 92.3 (81.0-99.0) fL MCH 30.6 (27.0-31.0) pg MCHC 33.1 (32.0-36.0) g/dL RDW 15.1 H (12.0-15.0) % Plt Count 104 L (130-450) 10^3/uL MPV 9.6 (7.9-10.8) fL Neut # 7.9 H (1.5-6.6) 10^3/uL Lymph # 1.2 L (1.5-3.5) 10^3/uL [place] # 0.6 (0.0-1.0) 10^3/uL Eos # 0.1 (0.0-0.7) 10^3/uL Baso # 0.1 (0.0-0.1) 10^3/uL Absolute Nucleated RBC 0.01 x10^3/uL Nucleated RBC % 0.1 /100WBC PT (9.9-12.6) secs INR (0.8-1.2) APTT (24.9-33.3) secs Sodium (135-145) mmol/L Potassium (3.5-5.0) mmol/L Chloride (101-111) mmol/L Carbon Dioxide (21-32) mmol/L Anion Gap (6-13) BUN (6-20) mg/dL Creatinine (0.4-1.0) mg/dL Estimated GFR (MDRD) (>89) Glucose (70-100) mg/dL Calcium (8.5-10.3) mg/dL Total Bilirubin (0.2-1.0) mg/dL AST (10-42) IU/L ALT (10-60) IU/L Alkaline Phosphatase (42-121) IU/L Total Protein (6.7-8.2) g/dL Albumin (3.2-5.5) g/dL Globulin (2.1-4.2) g/dL Albumin/Globulin Ratio (1.0-2.2) Blood Type O POSITIVE Blood Type Recheck O POSITIVE Antibody Screen NEGATIVE Crossmatch IS Only See Detail Assessment/Plan - Problem List (1) Hematoma Impression: This winnie female gives us a history of menometrorrhagia, a spontaneous subdural, a spontaneous thigh hematoma last month, and now this. No one in her family has a bleeding disorder. Her hemoglobin has dropped a bit but it may be from dilution from 2 L of fluid. I spoke at length to [facility] hematology attending yesterday who is on-call: Tyrone Meza MD. They actually feel that she would be an acceptable candidate to transfer but they have no beds at this time. They would like me to consider von Willebrand's disease, or acquired hemophilia. They recommend her being transfuse if hemoglobin drops less than 7 or less than 8 if she is symptomatic with shortness of breath and chest pain. They feel that as long as her platelets stay above 100,000 I do not need to transfuse unless she drops below 50. INR is 1.1 and I do not need to give vitamin K or FFP unless INR goes above 1.5. They would like her CBC and PT/INR checked twice a day. If she starts to actively bleed with a drop in blood pressure or increase in pulse call them back. She ended up needing 2 units of packed cells for hemoglobin of 6.9 this morning. She continues to be normotensive and a normal pulse rate. There is no tachycardia. She is just uncomfortable from the pain of the hematoma. Oxygenation is been normal.I have given her oral vitamin K. I am still awaiting word from [facility] if they have a bed for her today. (2) Acute blood loss anemia Impression: she has a hx of iron def anemia per the hysterectomy records. Yesterday I could not say for it was acute blood loss versus chronic blood loss in this woman who has a history of anemia. But with an acute drop in her hemoglobin this morning it is acute blood loss anemia. Continue to follow with serial hemograms twice daily and transfuse as necessary. (3) Headache Impression: She had a headache yesterday. And wondering if she had a repeat of the "clots in her brain" we did a CT of the head and it was negative. I was able to obtain records from [facility] from [facility]. She had a chief complaint of a headache on May 12, 2016. On evaluation found to have a right subdural hematoma with midline shift. Consultation with neurosurgery was obtained and a Dr. Britton operated on her with a successful right frontal and parietal ramon hole craniotomy and evacuation of the subdural hematoma. She was transitioned from critical care to MedSur unit and eventually discharged on May 16 with no complications. Qualifiers: Headache type: unspecified (4) Hypokalemia Impression: Supplemented and normal today
--- NOTE | 2016-12-29 16:40 | Discharge Plan ---
Discharge Plan Disposition: 02 Transfer Acute Care Hosp Condition: Stable Diet: Regular Activity Restrictions: Activity as Tolerated Shower Restrictions: No Driving Restrictions: No Additional Instructions or Follow Up instructions: You were placed into the hospital for observation because you developed a large expanding collection of blood underneath the skin of your scapula on your left back and left lateral side. It was large enough that you dropped your hemoglobin. Normal amount of hemoglobin is 12 g in a woman. You were 10.8 when you came in and you were 6.9 grams, needing 2 units of blood before you left. This is a very unusual presentation of bleeding. We are tentatively wondering if you have acquired a bleeding disorder. Since we do not have specialists here that can evaluate you for bleeding disorder, we are transferring you to the [facility] for evaluation by tire setter. No Smoking: If you smoke, Please STOP! Call for help.
--- NOTE | 2016-12-29 16:53 | DISCHARGE SUMMARY ---
"Discharge Summary Admit Date: 12/28/16 Discharge Date: 12/29/16 Discharging Provider: Corinne Gamez MD Primary Care Provider: none Code Status: Attempt Resuscitation Condition at Discharge: Stable Discharge Disposition: 02 Transfer Acute Care Hosp Discharge Facility Name: [facility] - DIAGNOSES Discharge Diagnoses with Status of Each Condition: 1. Expanding an enlarging hematoma, subcutaneous left back. Still present 2. Acute blood loss anemia down to hemoglobin 6.9 requiring transfusion of 2 units of packed cells.Still present 3. History of subdural hematoma 4. History of menometrorrhagia 5. Hypertension 6. Tobacco abuse - HPI History of Present Illness: She is a 51-year-old female who presented to the emergency room because of sudden onset of numbness burning pain underneath the skin and over her left scapula on the day of admission. As the pain and numbness got worse, a standby examination showed her to have an enlarging subcutaneous area underneath her skin that frightened her and she came to the emergency room. In the emergency room she was found to have a large, large hematoma on CT scan of the chest. Hemoglobin was initially 10.8. PMH: She has a history of menometrorrhagia with a hysterectomy in 2015 because of a hemoglobin of 6. She has a history of a spontaneous subdural hematoma requiring evacuation May 2016. She has a history of a spontaneous thigh hematoma approximately 3 weeks ago In the emergency room she was found to be normotensive, occasionally would drop her blood pressure lower but never truly hypotensive. She was never tachycardic. She was a short statured middle-aged female with a headache, in pain because of the hematoma over the left back. No hypoxia. - CONSULTS | PROCEDURES Consultations: General surgery, Dr. Tayla Hair Procedures: CT angiogram of chest CT of head - HOSPITAL COURSE Hospital Course: The patient was monitored in observation status and had her hemoglobins checked frequently as well as every 4 hours neuro checks. Because of the headache, she underwent a CT of the head which showed no recurrent subdural. Monitoring of her hemoglobin and hematocrit revealed her hemoglobin to drop to 6.9 and she ended up needing 2 units of packed cells that she drop below 7. She was given vitamin K. This is an unusual presentation of an acute blood loss anemia. It appears to be strictly from a hematoma. She has a past medical history that is significant for bleeding. I consulted [facility] on-call hematology and they felt that this patient warranted transfer to a higher level of care on the basis of the difficulty of making this workup. We have a critical access hospital here and her only specialties are primary care, DIE MOUNTER , general surgery, and orthopedics. The only other issues addressed during her stay were that of nicotine withdrawal. At one point she wanted to leave the hospital because she was so nervous. We found out that basically she just wanted to walk in the hallways, and smoke. Since we could not allow the smoking we gave her a nicotine patch and that made her feel better. She is transferred in stable condition, with a temperature of 36.9, pulse of 87 , blood pressure 134/78. Respirations are 20 and unlabored and she is 98% on room air. She is a short statured middle-aged female well-groomed well -nourished. Occasional grimace and twinge of pain from the pressure she feels in the hematoma over her scapula, and into her left breast in the mid axillary line. She is short of breath with talking to family. But oxygen saturations are normal. Lungs are clear, she has a regular rate and rhythm without a murmur. The abdomen is soft nontender. She has no extremity edema. There is no joint hemarthrosis. And she is able to sit up, transfer feet and stand without assist. At the time of discharge a von Willebrand's panel is pending. She has received vitamin K and 2 units of packed cells. HIV needs to be ordered at [facility]. - ALLERGIES Allergies/Adverse Reactions: Allergies Allergy/AdvReac Type Severity Reaction Status Date / Time No Known Drug Allergies Allergy Verified 12/27/16 22:55 - MEDICATIONS Home Medications: Ambulatory Orders Medication Instructions Recorded Confirmed Aspirin 81 mg PO DAILY 12/27/16 12/27/16 Aspirin/Acetaminophen/Caffeine 1 each PO Q6H PRN 12/28/16 12/28/16 [[facility]] - LABS Result Diagrams: 12/29/16 05:29 12/29/16 05:29"
[2016-12-29 17:48] VITALS: BP 167/79
== END 2016-12-29 17:40 | disposition short-term general hospital (02) ==
LOC: ED 22:41 → OBS 12-28 00:20
PROVIDERS: ADMIT Internal Medicine; ATTEND Specialist
DX: M79.81 Nontraumatic hematoma of soft tissue (principal); D62 Acute posthemorrhagic anemia; R51 Headache; E87.6 Hypokalemia; I10 Essential (primary) hypertension; F17.213 Nicotine dependence, cigarettes, with withdrawal; Z79.82 Long term (current) use of aspirin; Z90.710 Acquired absence of both cervix and uterus; Z86.2 Personal history of diseases of the blood and blood-forming organs and certain disorders involving the immune mechanism; Z71.6 Tobacco abuse counseling
CPT/HCPCS: 36415; 36430; 70450; 71275; 80053; 83690; 83880; 84484; 85025; 85384; 85610; 85730; 86850; 86900; 86901; 86920; 93005; 96361; 96374; 96375; 96376; 99284; 99285; A9270; G0378; J2270; P9016; Q9967

== ENCOUNTER 2016-12-29 17:48 | Outpatient (CLI) | payer MEDICAID | END 2016-12-29 17:49 | disposition short-term general hospital (02) | LOC: EMS 17:48 | PROVIDERS: ATTEND Surgery | DX: M54.9 Dorsalgia, unspecified (principal) | CPT/HCPCS: A0170; A0425; A0428 ==

== ENCOUNTER 2017-01-18 09:37 | Outpatient (CLI) | payer MEDICAID ==
[2017-01-18 13:29] LABS: BASOPHILS # (AUTO) 0.1 10^3/uL (0.0-0.1); BASOPHILS % (AUTO) 1.4 %; EOSINOPHILS # (AUTO) 0.2 10^3/uL (0.0-0.7); EOSINOPHILS % (AUTO) 1.9 %; HCT - HEMATOCRIT 41.4 % (37.0-47.0); HGB - HEMOGLOBIN 13.7 g/dL (12.0-16.0); LYMPHOCYTES # (AUTO) 1.6 10^3/uL (1.5-3.5); LYMPHOCYTES % (AUTO) 19.1 %; MEAN CORPUSCULAR HEMOGLOBIN 30.7 pg (27.0-31.0); MEAN PLATELET VOLUME 9.2 fL (7.9-10.8); MONOCYTES # (AUTO) 0.5 10^3/uL (0.0-1.0); MONOCYTES % (AUTO) 6.1 %; NEUTROPHILS # (AUTO) 5.8 10^3/uL (1.5-6.6); NEUTROPHILS % (AUTO) 71.5 %; RED BLOOD COUNT 4.45 10^6/uL (4.20-5.40); RED CELL DISTRIBUTION WIDTH 17.3 % (12.0-15.0); UNCORRECTED WHITE BLOOD COUNT 8.1 x10^3/uL; WHITE BLOOD COUNT 8.1 x10^3/uL (4.8-10.8)
[2017-01-18 13:45] LABS: ALBUMIN/GLOBULIN RATIO 1.4 (1.0-2.2); BILIRUBIN,TOTAL 0.5 mg/dL (0.2-1.0); CALCIUM 8.5 mg/dL (8.5-10.3); POTASSIUM 3.6 mmol/L (3.5-5.0); TOTAL PROTEIN 6.9 g/dL (6.7-8.2)
== END 2017-01-18 09:38 | disposition home or self-care (01) ==
LOC: LAB.WCP 09:37
PROVIDERS: ATTEND Family Medicine
DX: D69.9 Hemorrhagic condition, unspecified (principal)
CPT/HCPCS: 36415; 80053; 85025

== ENCOUNTER 2017-02-08 09:25 | Outpatient (CLI) | payer MEDICAID ==
[2017-02-08 19:36] LABS: BASOPHILS # (AUTO) 0.1 10^3/uL (0.0-0.1); BASOPHILS % (AUTO) 1.6 %; EOSINOPHILS # (AUTO) 0.3 10^3/uL (0.0-0.7); EOSINOPHILS % (AUTO) 3.9 %; HCT - HEMATOCRIT 43.2 % (37.0-47.0); LYMPHOCYTES # (AUTO) 1.9 10^3/uL (1.5-3.5); LYMPHOCYTES % (AUTO) 23.1 %; MEAN CORPUSCULAR HEMOGLOBIN 30.3 pg (27.0-31.0); MEAN CORPUSCULAR HGB CONC 32.5 g/dL (32.0-36.0); MEAN PLATELET VOLUME 10.4 fL (7.9-10.8); MONOCYTES # (AUTO) 0.5 10^3/uL (0.0-1.0); MONOCYTES % (AUTO) 6.2 %; NEUTROPHILS # (AUTO) 5.4 10^3/uL (1.5-6.6); NEUTROPHILS % (AUTO) 65.2 %; NUCLEATED RED BLOOD CELLS AUTO 0.2 /100WBC; RED BLOOD COUNT 4.64 10^6/uL (4.20-5.40); RED CELL DISTRIBUTION WIDTH 15.2 % (12.0-15.0); UNCORRECTED WHITE BLOOD COUNT 8.3 x10^3/uL; WHITE BLOOD COUNT 8.3 x10^3/uL (4.8-10.8)
[2017-02-08 20:15] LABS: ALBUMIN/GLOBULIN RATIO 1.4 (1.0-2.2); BILIRUBIN,TOTAL 0.6 mg/dL (0.2-1.0); CREATININE 0.9 mg/dL (0.4-1.0); POTASSIUM 3.7 mmol/L (3.5-5.0); TOTAL PROTEIN 6.6 g/dL (6.7-8.2)
== END 2017-02-08 09:26 | disposition home or self-care (01) ==
LOC: LAB.WCP 09:25
PROVIDERS: ATTEND Family Medicine
DX: I10 Essential (primary) hypertension (principal)
CPT/HCPCS: 36415; 80053; 85025

== ENCOUNTER 2017-02-15 09:50 | Outpatient (CLI) | payer MEDICAID ==
[2017-02-21 15:02] LABS: ALDO/PRA RATIO 29.6 Ratio (0.9-28.9)
== END 2017-02-15 09:51 | disposition home or self-care (01) ==
LOC: LAB.WCP 09:50
PROVIDERS: ATTEND Family Medicine
DX: I10 Essential (primary) hypertension (principal)
CPT/HCPCS: 36415; 82088; 84244; 84443

== ENCOUNTER 2017-03-08 09:05 | Outpatient (CLI) | payer MEDICAID | END 2017-03-08 09:06 | disposition home or self-care (01) | LOC: LAB.WCP 09:05 | PROVIDERS: ATTEND Family Medicine | DX: J06.9 Acute upper respiratory infection, unspecified (principal) | CPT/HCPCS: 87275; 87276 ==

== ENCOUNTER 2017-03-09 16:09 | Emergency (ER) | payer MEDICAID ==
--- NOTE | 2017-03-09 18:31 | ED Physician Documentation ---
PD HPI URI - Stated complaint Stated Complaint: HBP - Chief complaint Chief Complaint: Cardiac - History obtained from History obtained from: Patient - History of Present Illness Timing - onset: How many weeks ago (1) Timing duration: Weeks (1) Timing details: Gradual onset, Still present (has had congestion and cough for a week, worse today with higher BP noted as well. Concerned about the high BP. She says her BP runs about 140-150 systolic with medications.) Associated symptoms: Nasal congestion, Rhinorrhea, Sinus pain, Dry cough. No: Chest pain Contributing factors: No: Sick contact, Travel, Immunocompromised Improves by: No: Medication Similar symptoms before: Has not had sx before Recently seen: Not recently seen Review of Systems Constitutional: reports: Myalgias. denies: Fever Eyes: denies: Decreased vision Nose: reports: Congestion. denies: Rhinorrhea / runny nose Throat: reports: Sore throat Cardiac: denies: Chest pain / pressure Respiratory: reports: Cough. denies: Dyspnea, Hemoptysis GI: denies: Vomiting, Diarrhea Skin: denies: Rash, Lesions PD PAST MEDICAL HISTORY - Past Medical History Cardiovascular: Hypertension Neuro: Other Endocrine/Autoimmune: None GI: Hemorrhoids JOB FORWARDER: Fibroids, Other : None HEENT: None Psych: None Musculoskeletal: None Derm: None - Past Surgical History Past Surgical History: Yes /JOB FORWARDER: Hysterectomy - Present Medications Home Medications: Ambulatory Orders Medication Instructions Recorded Confirmed Albuterol Sulf [Ventolin Hfa 1 - 2 puffs INH Q4HR PRN #1 inhaler 03/09/17 Inhaler] Dexamethasone [Decadron] 4 mg PO DAILY #5 tablet 03/09/17 Doxycycline Monohydrate 100 mg PO BID #14 tablet 03/09/17 Lisinopril 20 mg PO DAILY 03/09/17 03/09/17 amLODIPine [Norvasc] 5 mg PO ONCE 03/09/17 03/09/17 clonazePAM [Clonazepam] 0.5 mg PO DAILY 03/09/17 03/09/17 guaiFENesin/CODEINE [Robitussin AC] 10 ml PO Q6H PRN #240 ml 03/09/17 - Allergies Allergies/Adverse Reactions: Allergies Allergy/AdvReac Type Severity Reaction Status Date / Time aspirin AdvReac HEMATOMA Verified 03/09/17 19:16 - Social History Does the pt smoke?: Yes Smoking Status: Current every day smoker Does the pt drink ETOH?: No Does the pt have substance abuse?: No - Immunizations Immunizations are current?: Yes - POLST Patient has POLST: No POLST Status: Full Code PD ED PE NORMAL - Vitals Vital signs reviewed: Yes - General General: Alert and oriented X 3, Well developed/nourished - HEENT HEENT: Ears normal, Pharynx benign - Neck Neck: Supple, no meningeal sign, No adenopathy - Cardiac Cardiac: RRR, No murmur - Respiratory Respiratory: Clear bilaterally - Abdomen Abdomen: Normal bowel sounds, Soft, Non tender - Neuro Neuro: Alert and oriented X 3, clinical trials manager 2-12 intact, No motor deficit, No sensory deficit, Normal speech, Other Eye Opening: Spontaneous Motor: Obeys Commands Verbal: Oriented GCS Score: 15 - Psych Psych: Normal mood Results - Vitals Vitals: Oxygen O2 Source Room air PD MEDICAL DECISION MAKING - ED course Complexity details: considered differential (BP was elevated high but is decreasing toward her normal level. She has illness and is taking some cold meds , so not unreasonable to be elevated. ), d/w patient Departure - Departure Disposition: 01 Home, Self Care Clinical Impression: Upper respiratory infection Qualifiers: URI type: unspecified URI Qualified Code(s): J06.9 - Acute upper respiratory infection, unspecified Hypertension Qualifiers: Hypertension type: other secondary hypertension Qualified Code(s): I15.8 - Other secondary hypertension Condition: Stable Record reviewed to determine appropriate education?: Yes Instructions: ED Upper Resp Infec Abx Tx, ED HTN Established Follow-Up: Vishnu Ivy MD [Primary Care Provider] - Prescriptions: Albuterol Sulf [Ventolin Hfa Inhaler] 1 - 2 puffs INH Q4HR PRN #1 inhaler PRN Reason: Shortness Of Air/Wheezing Dexamethasone [Decadron] 4 mg PO DAILY #5 tablet Doxycycline Monohydrate 100 mg PO BID #14 tablet guaiFENesin/CODEINE [Robitussin AC] 10 ml PO Q6H PRN #240 ml PRN Reason: Cough Comments: Your blood pressure was elevated today likely due to illness and such. Continue usual blood pressure medications. For the cough and respiratory infection, use albuterol inhaler 2 puffs 4 times a day the next 7-10 days. Decadron steroid anti-inflammatory to decrease irritation in the bronchioles. Use doxycycline for the infection. Add Robitussin with codeine if needed for cough. Recheck if not improved over the next 3-5 days. Keep a check on your blood pressure and follow-up with your primary care regarding that. Forms: Activity restrictions Discharge Date/Time: 03/09/17 20:03
[2017-03-09] MEDS ORDERED: ALBUTEROL NEB 2.5 MG/3 ML INH STA (18:57)
[2017-03-09] MEDS ORDERED: DEXAMETHASONE 10 MG/ML VIAL PO STA (18:57)
[2017-03-09] MEDS ORDERED: ACETAMINOPHEN 325 MG TABLET PO STA (18:58)
[2017-03-09] MEDS ORDERED: CHERRY SYRUP 10 ML UDC PO ONE (19:20)
[2017-03-09] MEDS ORDERED: DOXYCYCLINE 100 MG TABLET PO STA (19:36)
[2017-03-09 19:42] VITALS: BP 159/96
== END 2017-03-09 20:03 | disposition home or self-care (01) ==
LOC: ED 16:09
DX: J06.9 Acute upper respiratory infection, unspecified (principal); I10 Essential (primary) hypertension; F17.200 Nicotine dependence, unspecified, uncomplicated
CPT/HCPCS: 94640; 99283; 99284; A9270; J7613

== ENCOUNTER 2017-04-13 15:30 | Outpatient (CLI) | payer MEDICAID | END 2017-04-13 15:31 | disposition home or self-care (01) | LOC: LAB.WCP 15:30 | PROVIDERS: ATTEND Family Medicine | DX: J06.9 Acute upper respiratory infection, unspecified (principal); R05 Cough | CPT/HCPCS: 87275; 87276 ==